=== PATIENT | male | born 1955 | race Caucasian/White ===

== ENCOUNTER → 2018-03-30 16:38 | Outpatient (CLI) | payer OTHER, SELFPAY ==
--- NOTE | 2018-03-30 16:42 | DI.RAD.S_ITS ---
PROCEDURE: XR CHEST 2V INDICATIONS: cough fever TECHNIQUE: 2 views of the chest were acquired. COMPARISON: [facility], , CHEST 1 VIEW, 10/28/2017, 12:40. [facility], , CHEST 2 VIEW, 02/28/2016, 12:42. FINDINGS: Surgical changes and devices: None. Lungs and pleura: No pleural effusions or pneumothorax. Lungs are clear. Mediastinum: Mediastinal contours are normal. Heart size is normal. Bones and chest wall: No suspicious bony abnormalities. Soft tissues appear unremarkable. IMPRESSION: No radiographic evidence of acute cardiopulmonary pathology. Dictated by: Jarred Martinez M.D. on 03/30/2018 at 17:01 Approved by: Jarred Martinez M.D. on 03/30/2018 at 17:05
== END ==
PROVIDERS: Family Provider Internal Medicine; PCP Internal Medicine; Visit Provider Physician Assistant
DX: R50.9 Fever, unspecified (principal); R05 Cough
CPT/HCPCS: 71046

== ENCOUNTER → 2018-10-24 09:05 | Outpatient (CLI) | payer OTHER, SELFPAY ==
--- NOTE | 2018-10-24 | DI.US.S_ITS ---
PROCEDURE: US CAROTID DOPPLER BI INDICATIONS: STENOSIS TECHNIQUE: Color and pulse Doppler interrogation was performed of both carotid systems, with image documentation and velocity measurements. COMPARISON: [facility], , CAROTID ARTERY DOPPLER BIL, 10/02/2016, 8:59. FINDINGS: Stenosis calculations are based on SRU (Society of Radiologists in Ultrasound) criteria. The flow velocities and the arterial waveforms are normal within both carotid arterial systems. Atherosclerotic plaque is seen on both sides. The estimated degree of internal carotid artery stenosis is less than 50%. Antegrade flow is confirmed within both vertebral arteries. IMPRESSION: No hemodynamically significant stenosis is seen. No significant change from the prior. Atherosclerotic plaque is noted bilaterally. Dictated by: Orlando Sprague M.D. on 10/24/2018 at 14:01 Approved by: Orlando Sprague M.D. on 10/24/2018 at 14:01
== END ==
PROVIDERS: PCP Internal Medicine; Visit Provider Internal Medicine
DX: I65.23 Occlusion and stenosis of bilateral carotid arteries (principal)
CPT/HCPCS: 93880

== ENCOUNTER → 2018-11-28 13:54 | Outpatient (CLI) | payer OTHER, SELFPAY ==
--- NOTE | 2018-11-28 | DI.CT.S_ITS ---
PROCEDURE: CT CHEST WO CON INDICATIONS: CHEST PAIN TECHNIQUE: Noncontrast 5 mm thick sections acquired from the pulmonary apices to the posterior costophrenic angles. 7 mm thick coronal and sagittal MIP reformats were then acquired. For radiation dose reduction, the following was used: automated exposure control, adjustment of mA and/or kV according to patient size. COMPARISON: [facility], , CT THORAX W/CONTRAST, 03/15/2006, 11:14. [facility], CR, CHEST 1 VIEW, 10/28/2017, 12:40. [facility], CR, XR CHEST 2V, 03/30/2018, 16:25. FINDINGS: Image quality: Excellent. Lungs and pleura: Left basilar atelectasis. No pleural effusions or pneumothorax. Central and peripheral airways are patent and normal in caliber. Mediastinum: Heart size is normal. No pericardial effusion. Mild coronary artery calcifications. No mediastinal adenopathy by size criteria. Thoracic aorta and central pulmonary arteries are normal in size. Esophagus is normal in caliber. No hiatal hernia. Bones and chest wall: No suspicious bony lesions. No vertebral body compression fractures. No axillary or supraclavicular adenopathy by size criteria. Thyroid gland is normal. Abdomen: There are calcific foci in the spleen, consistent with old granulomas. IMPRESSION: 1. Left basilar atelectasis. 2. Mild coronary artery calcifications consistent with atherosclerosis. 3. Remote granulomatous infection involving the spleen. Dictated by: Cyn Soto M.D. on 11/28/2018 at 14:37 Transcribed by: MELISSA on 11/28/2018 at 14:48 Approved by: Cyn Soto M.D. on 11/28/2018 at 20:50
== END ==
PROVIDERS: PCP Internal Medicine; Visit Provider Internal Medicine
DX: R07.9 Chest pain, unspecified (principal); J98.11 Atelectasis; I25.10 Atherosclerotic heart disease of native coronary artery without angina pectoris
CPT/HCPCS: 71250

== ENCOUNTER → 2019-04-15 10:50 | Outpatient (CLI) | payer OTHER, SELFPAY ==
[2019-04-15 17:06] LABS: Vitamin D 25 Hydroxy (D3) 26.1 ng/mL (30.0-100.0)
[2019-04-15 17:34] LABS: Alanine Aminotransferase 26 IU/L (21-72); Aspartate Aminotransferase 26 IU/L (17-59); Cholesterol 197 mg/dL (140-199); HDL Cholesterol 38 mg/dL (40-60)
[2019-04-15 17:42] LABS: Triglycerides 681 mg/dL (35-150)
== END ==
PROVIDERS: PCP Internal Medicine; Visit Provider Internal Medicine
DX: E78.5 Hyperlipidemia, unspecified (principal); E55.9 Vitamin D deficiency, unspecified
CPT/HCPCS: 36415; 80061; 82306; 84450; 84460

== ENCOUNTER → 2019-06-18 09:03 | Outpatient (CLI) | payer OTHER, SELFPAY ==
--- NOTE | 2019-06-18 09:04 | DIET.PN ---
Dietary Progress Note Assessment: starting radiation treatment in 30d on prostate, interested in getting healthy to support overall health HT: 5'10 WT: 200 Wt goal 180# BMI: 28.7 Wakes 6-9am coffee black, toast, 2 eggs or cereal (honey nut type), sometimes half a banana 11-1pm lunch: sandwich-turkey, cheese or burger/fish and chips-likes potatoes snacks a lot: crunchy salty like crackers and chips dinners: tortilla soup or burgers on grill Eats out a lot: rockfish, browns, filomena, candel[address] drive in, farmhouse breakfast evening: vodka cocktail and snacks relaxing watching tv goes to bed 10pm or sometimes later stress levels are pretty low but energy is also sort of low Not a fruit and veggie eater but does enjoy: grilled veggies-brussels sprouts and asparagus, will do a salad blueberries and bananas smoothies: frozen berries, banana, yogurt and milk PA: no intentional workout supps: Vit D in winter, Emergen-C occ. Labs: high triglycerides Nutrition Diagnosis: Nutrition related knowledge deficit r/t dietary pattern to support health aeb reliance on eating out, consumption of highly processed, low-fiber foods (crackers, chips, fries), consumption of inflammatory fats (fried foods, beef) and low consumption of F/V. Interventions: Discussed potential side effects of radiation. Educated on the role of healthy fats in pain control and inflammation. Educated on how increasing fiber can support weight loss and overall health. Discussed starting a PA plan, even as small as 10min walks post meals. Discussed strategies to increase F/V consumption throughout the day. Collaborated c pt to modify daily intake to include more anti-inflammatory fats, fiber, and F/V. Client Goals: Willprioritize a 10 minute walk after meals when eating out. Will increase fiber by choosing whole grain bread, chips etc Will add a scoop pro powder to smoothie Anti-inflammatory fats (nuts, seeds, vegetable based oils, avocado, coconut, fish-salmon, trout, sardines, tuna, etc) will outcompete the inflammatory fats (from animal foods like meat and dairy) to help with pain and systemic inflammation. Use olive oil, find a non-aerosol olive oil spray instead of MARA vegetable oil, find an avocado oil to use for cooking. Incorporate fruits and veggies into diet, aim for 7-10 servings per day. Monitoring/Evaluations: Pt comfortable with information and will call to schedule f/u if desired.
== END ==
PROVIDERS: PCP Internal Medicine; Visit Provider Internal Medicine
DX: E78.1 Pure hyperglyceridemia (principal)
CPT/HCPCS: 97802

== ENCOUNTER → 2019-07-09 07:56 | Outpatient (CLI) | payer OTHER, SELFPAY ==
--- NOTE | 2019-07-09 | DI.CT.S_ITS ---
PROCEDURE: CT ABDOMEN PELVIS W CON INDICATIONS: Prostate cancer TECHNIQUE: After the administration of oral and intravenous contrast, 5 mm thick sections acquired from the diaphragms to the symphysis. 5 mm thick coronal and sagittal reformats were performed. For radiation dose reduction, the following was used: automated exposure control, adjustment of mA and/or kV according to patient size. COMPARISON: [facility], CT, ABDOMEN/PELVIS WITH CONTRAST, 10/28/2017, 14:04. FINDINGS: Image quality: Excellent. ABDOMEN: Lung bases: Lung bases are clear. Heart size is normal. Solid organs: Liver is normal in size and enhancement. A well-defined lobulated hypodensity in the upper left hepatic lobe is stable. Gallbladder is normal. Biliary system is non-dilated. Pancreas enhances normally. Spleen i contains numerous punctate calcifications and occasional subcentimeter hypodensities too small to characterize. No adrenal nodules. Kidneys are normal in size and enhancement, without hydronephrosis. Peritoneum and bowel: The distal aspect of the transverse colon is in spasm. There are numerous diverticula throughout the distal descending and sigmoid colon. No inflammatory changes. At the rectosigmoid junction, there is a fixed short segment of asymmetric wall thickening and focal stenosis similar compared to the prior study. No adjacent inflammation or fluid. A normal appendix is present. Stomach, small bowel, and colon loops are otherwise normal in caliber and wall thickness. No free fluid or air. Nodes and vessels: No retroperitoneal or mesenteric adenopathy. Aorta and inferior vena cava are normal in caliber. Miscellaneous: No ventral hernias. PELVIS: Genitourinary: Bladder wall thickness is normal. The prostate gland is surgically absent. No suspicious pelvic masses or fluid collections. Miscellaneous: No inguinal hernias or adenopathy. Bones: No suspicious bony lesions. No vertebral body compression fractures. IMPRESSION: 1. At the rectosigmoid junction, there is a fixed short segment of stenosis and wall thickening. This may be related to postsurgical adhesive change, chronic fibrosis, however colonoscopy is recommended to exclude malignancy. 2. Post prostatectomy with interval resolution of prior pelvic inflammatory changes. 3. Descending and sigmoid diverticulosis. 4. No evidence of distant metastatic disease in the abdomen or pelvis. 5. Granulomatous changes of the spleen. Dictated by: Beckie Perry M.D. on 07/09/2019 at 12:58 Approved by: Beckie Perry M.D. on 07/09/2019 at 13:06
--- NOTE | 2019-07-09 | DI.NM.S_ITS ---
PROCEDURE: NM BONE SCAN WHOLE BODY RADIOPHARMACEUTICAL: 20.0 mCi Tc-99m MDP IV. INDICATIONS: Prostate cancer TECHNIQUE: Delayed whole-body scintigrams were obtained approximately 3-4 hours after intravenous injection of radiotracer. Anterior and posterior views were acquired from vertex to feet. . COMPARISON: None. FINDINGS: There is mild periarticular uptake about the knees which is likely degenerative. No suspicious tracer activity seen. Physiologic tracer activity present in the kidneys and bladder. IMPRESSION: No suspicious tracer activity. Dictated by: Alex Kearns M.D. on 07/09/2019 at 13:00 Approved by: Alex Kearns M.D. on 07/09/2019 at 13:06
[2019-07-09 08:29] LABS: BUN Creatinine Ratio 14.5 (6-22); Blood Urea Nitrogen 16 mg/dL (9-20); Estimated Glomerular Filt Rate > 60.0 mL/min (>60)
== END ==
PROVIDERS: PCP Internal Medicine; Visit Provider Radiology Radiation Oncology
DX: C61 Malignant neoplasm of prostate (principal)
CPT/HCPCS: 36415; 74177; 78306; 82565; 84520; A9503; Q9967

== ENCOUNTER → 2019-12-19 10:21 | Outpatient (CLI) | payer OTHER, SELFPAY ==
[2019-12-19 12:27] LABS: Hematocrit 39.8 % (41-53); Hemoglobin 13.8 g/dL (13.5-17.5); Mean Corpuscular HGB Conc 34.7 % (30-36); Mean Corpuscular Hemoglobin 35.8 PG (26-34); Mean Corpuscular Volume 103.3 fL (80-100); Platelet Count 110 X10^3/uL (150-400); Red Blood Cell Count 3.85 X10^6/uL (4.5-5.9); Red Cell Distribution Width 13.3 % (11.6-14.8)
[2019-12-19 12:57] LABS: Neutrophils Absolute Manual 2600 /uL (3000-5900); RBC Morphology Normal Morphology; Total Cells Counted 100
[2019-12-19 13:30] LABS: Alanine Aminotransferase 30 IU/L (<50); Albumin 4.4 g/dL (3.5-5.0); Albumin Globulin Ratio 1.4 (1.0-2.8); Alkaline Phosphatase 81 U/L (38-126); Aspartate Aminotransferase 33 IU/L (17-59); Bilirubin Total 1.6 mg/dL (0.2-1.3); Blood Urea Nitrogen 23 mg/dL (9-20); Calcium 9.9 mg/dL (8.4-10.2); Carbon Dioxide 25 mmol/L (22-32); Chloride 103 mmol/L (98-107); Cholesterol 213 mg/dL (140-199); Estimated Glomerular Filt Rate > 60.0 mL/min (>60); Globulin 3.1 g/dL (1.7-4.1); Glucose 101 mg/dL (80-110); HDL Cholesterol 51 mg/dL (40-60); HEMOLYSIS < 15 (0-50); Potassium 4.3 mmol/L (3.4-5.1); Sodium 139 mmol/L (137-145); Total Protein 7.5 g/dL (6.3-8.2); Triglycerides 487 mg/dL (35-150)
== END ==
PROVIDERS: PCP Student in an Organized Health Care Education/Training Program; Visit Provider Student in an Organized Health Care Education/Training Program
DX: E78.1 Pure hyperglyceridemia (principal); D70.9 Neutropenia, unspecified; E55.9 Vitamin D deficiency, unspecified; Z79.899 Other long term (current) drug therapy; Z90.79 Acquired absence of other genital organ(s); Z92.3 Personal history of irradiation
CPT/HCPCS: 36415; 80053; 80061; 82306; 85025

== ENCOUNTER → 2019-12-22 12:43 | Outpatient (CLI) | payer OTHER, SELFPAY ==
[2019-12-22 13:11] LABS: Bacteria Urine None Seen
[2019-12-22 13:44] LABS: Appearance Urine UA CLEAR; Bilirubin Urine UA NEGATIVE (NEGATIVE); Color Urine UA YELLOW; Glucose Urine UA NEGATIVE (Negative); Ketones Urine UA NEGATIVE (NEGATIVE); Leukocyte Esterase Urine UA NEGATIVE (NEGATIVE); Nitrite Urine UA NEGATIVE (Negative); Occult Blood Urine UA 1+ (Negative); Protein Urine UA 1+ (Negative); Specific Gravity Urine UA 1.025 (1.000-1.035); Urobilinogen Urine UA 0.2 E.U./dL (0.2); pH Urine UA 5.5 (4.5-8.0)
[2019-12-22 14:07] LABS: RBC Urine 1-5/HPF (0-5/HPF); WBC Urine 0-1/HPF (0-5/HPF)
[2019-12-22 14:08] LABS: Culture Indicated Urine Cult Not Indicated; Squamous Epithelial Cell Urine 0-1 /HPF (0-5/HPF)
== END ==
PROVIDERS: PCP Student in an Organized Health Care Education/Training Program; Referring Provider Radiology Radiation Oncology; Visit Provider Radiology Radiation Oncology
DX: R30.0 Dysuria (principal)
CPT/HCPCS: 81001

== ENCOUNTER → 2020-03-26 11:35 | Outpatient (CLI) | payer OTHER, SELFPAY ==
[2020-03-26 13:52] LABS: Prostate Specific Antigen < 0.064 ng/mL (0.10-4.00)
== END ==
PROVIDERS: PCP Student in an Organized Health Care Education/Training Program; Referring Provider Radiology Radiation Oncology; Visit Provider Radiology Radiation Oncology
DX: C61 Malignant neoplasm of prostate (principal)
CPT/HCPCS: 36415; 84153

== ENCOUNTER → 2020-09-01 09:42 | Outpatient (CLI) | payer OTHER, SELFPAY ==
--- NOTE | 2020-09-01 09:45 | DI.RAD.S_ITS ---
PROCEDURE: XR KNEE LT 3V INDICATIONS: Left knee pain TECHNIQUE: 3 views of the knee were acquired. COMPARISON: None. FINDINGS: Bones: No acute fractures or dislocations. Mild tricompartmental degenerative changes of the left knee. No suspicious bony lesions. Soft tissues: No joint effusion. No suspicious soft tissue calcifications. IMPRESSION: Left knee without acute osseous abnormalities. Mild tricompartmental osteoarthritic changes of the left knee. Dictated by: Imtiaz Cueto M.D. on 09/01/2020 at 14:19 Approved by: Imtiaz Cueto M.D. on 09/01/2020 at 14:20
--- NOTE | 2020-09-01 09:45 | DI.RAD.S_ITS ---
PROCEDURE: XR HIP W PEL IF DONE LT 2V INDICATIONS: Left hip pain TECHNIQUE: AP pelvis with lateral view(s) of the left a hip(s). COMPARISON: None. FINDINGS: Bones: No fractures or dislocations. Pelvic ring appears intact. No suspicious bony lesions. Mild degenerative changes of the bilateral femoroacetabular joints. Soft tissues: The visualized bowel gas pattern is normal. No suspicious soft tissue calcifications. IMPRESSION: Mild degenerative changes of the bilateral femoroacetabular joints. Left hip without acute radiographic abnormalities. Dictated by: Imtiaz Cueto M.D. on 09/01/2020 at 14:16 Approved by: Imtiaz Cueto M.D. on 09/01/2020 at 14:19
[2020-09-01 11:49] LABS: Alanine Aminotransferase 22 IU/L (<50); Albumin 4.2 g/dL (3.5-5.0); Albumin Globulin Ratio 1.4 (1.0-2.8); Alkaline Phosphatase 91 U/L (38-126); Aspartate Aminotransferase 26 IU/L (17-59); BUN Creatinine Ratio 16.3 (6-22); Bilirubin Direct 0.2 mg/dL (0.0-0.4); Bilirubin Total 1.1 mg/dL (0.2-1.3); Blood Urea Nitrogen 16 mg/dL (9-20); Calcium 9.3 mg/dL (8.4-10.2); Carbon Dioxide 28 mmol/L (22-32); Chloride 104 mmol/L (98-107); Cholesterol 181 mg/dL (140-199); Estimated Glomerular Filt Rate > 60.0 mL/min (>60); Glucose 105 mg/dL (80-110); HDL Cholesterol 54 mg/dL (40-60); HEMOLYSIS < 15 (0-50); Potassium 4.5 mmol/L (3.4-5.1); Sodium 139 mmol/L (137-145); Total Protein 7.2 g/dL (6.3-8.2); Triglycerides 442 mg/dL (35-150)
[2020-09-01 11:53] LABS: Vitamin D 25 Hydroxy (D3) 41.2 ng/mL (30.0-100.0)
[2020-09-01 12:36] LABS: Prostate Specific Antigen < 0.064 ng/mL (0.10-4.00)
== END ==
PROVIDERS: PCP Student in an Organized Health Care Education/Training Program; Referring Provider Student in an Organized Health Care Education/Training Program; Visit Provider Student in an Organized Health Care Education/Training Program
DX: M25.552 Pain in left hip (principal); M25.562 Pain in left knee; E78.1 Pure hyperglyceridemia; R17 Unspecified jaundice; E55.9 Vitamin D deficiency, unspecified; Z90.79 Acquired absence of other genital organ(s)
CPT/HCPCS: 36415; 73502; 73562; 80053; 80061; 82248; 82306; 84153

== ENCOUNTER → 2020-12-14 12:40 | Outpatient (CLI) | payer MEDICARE, SELFPAY ==
[2020-12-14] MEDS: COVID-19 VACC #1, MRNA(MOD) 100 MCG/0.5 ML VIAL IM (12:46)
== END ==
PROVIDERS: PCP Student in an Organized Health Care Education/Training Program; Visit Provider Internal Medicine
DX: Z23 Encounter for immunization (principal)
CPT/HCPCS: 0011A; 91301

== ENCOUNTER → 2021-01-11 12:47 | Outpatient (CLI) | payer MEDICARE, SELFPAY ==
[2021-01-11] MEDS: COVID-19 VACC #2, MRNA(MOD) 100 MCG/0.5 ML VIAL IM (12:59)
== END ==
PROVIDERS: PCP Student in an Organized Health Care Education/Training Program; Visit Provider Internal Medicine
DX: Z23 Encounter for immunization (principal)
CPT/HCPCS: 0012A; 91301

== ENCOUNTER → 2021-04-05 12:35 | Outpatient (CLI) | payer OTHER, SELFPAY ==
[2021-04-05 16:15] LABS: Prostate Specific Antigen < 0.064 ng/mL (0.10-4.00)
== END ==
PROVIDERS: PCP Student in an Organized Health Care Education/Training Program; Referring Provider Radiology Radiation Oncology; Visit Provider Radiology Radiation Oncology
DX: C61 Malignant neoplasm of prostate (principal)
CPT/HCPCS: 36415; 84153

== ENCOUNTER → 2021-07-04 11:13 | Outpatient (CLI) | payer OTHER, SELFPAY ==
[2021-07-04 13:45] LABS: COVID19 -Nasal RAPID Negative (Negative)
== END ==
PROVIDERS: PCP Student in an Organized Health Care Education/Training Program; Visit Provider Physician Assistant
DX: R52 Pain, unspecified (principal); Z20.822 Contact with and (suspected) exposure to COVID-19
CPT/HCPCS: 87635

== ENCOUNTER → 2021-08-08 10:27 | Outpatient (CLI) | payer OTHER, SELFPAY ==
--- NOTE | 2021-08-08 10:29 | DI.CT.S_ITS ---
PROCEDURE: CT ABDOMEN PELVIS WO CON INDICATIONS: Lower abdominal pain; h/o divertic TECHNIQUE: Axial sections were acquired from the lung bases to the pubic symphysis. Coronal and sagittal reformats were performed. For radiation dose reduction, the following was used: automated exposure control, adjustment of mA and/or kV according to patient size. COMPARISON: [facility], CT, CT ABDOMEN PELVIS W CON, 07/09/2019, 9:26. FINDINGS: Image quality: Excellent. Lung bases: Lung bases are clear. Small hiatal hernia. Heart: Normal size. There is coronary artery calcification. URINARY: Right Kidney: No stones or hydronephrosis. Mild perinephric stranding. Right Ureter: No hydroureter. Left Kidney: There is a 2 mm nonobstructive stone. No hydronephrosis. Mild perinephric stranding. Left Ureter: No hydroureter. Bladder: Bladder is contracted. No bladder stones. ABDOMEN: Liver: Liver is normal in size. Mild hepatic steatosis. There is a 1.8 cm low-density nodule in segment 4, most likely a cyst. Gallbladder: Unremarkable. Biliary ducts: Unremarkable. Pancreas: Unremarkable. Spleen: Normal in size. Calcified nodules in spleen are compatible with old granulomas. Adrenal Glands: Unremarkable. Stomach and Bowel: Stomach, small bowel loops, and colon are normal in caliber. There are numerous colonic diverticula, most numerous in sigmoid colon. There is focal thickening and nichole-colonic inflammatory stranding in the proximal sigmoid colon consistent with diverticulitis. Peritoneum: No abnormal intraperitoneal fluid. No free air. Ventral Wall: There is a tiny fat containing umbilical hernia. Abdominal Nodes: No enlarged retroperitoneal or mesenteric lymph nodes. Mild mesenteric stranding and small mesenteric lymph nodes are noted, nonspecific. Vessels: Aorta and inferior vena cava are normal in size. PELVIS: Pelvic Organs: Prostate is absent. Pelvic Nodes: Unremarkable. Miscellaneous: Small fat containing inguinal hernias are seen. Bones: Unremarkable. IMPRESSION: 1. Acute diverticulitis of the sigmoid colon. No findings to suggest diverticular perforation. No abscess. 2. A 2 mm nonobstructive left renal calculus. 3. Remote granulomatous disease involving the spleen. Dictated by: Cyn Soto M.D. on 08/08/2021 at 10:46 Approved by: Cyn Soto M.D. on 08/08/2021 at 10:58
== END ==
PROVIDERS: PCP Student in an Organized Health Care Education/Training Program; Referring Provider Student in an Organized Health Care Education/Training Program; Visit Provider Student in an Organized Health Care Education/Training Program
DX: R10.30 Lower abdominal pain, unspecified (principal); K57.32 Diverticulitis of large intestine without perforation or abscess without bleeding; N20.0 Calculus of kidney; D71 Functional disorders of polymorphonuclear neutrophils
CPT/HCPCS: 74176

== ENCOUNTER → 2022-01-13 09:14 | Outpatient (CLI) | payer OTHER, SELFPAY ==
[2022-01-13 11:29] LABS: COVID19 -Nasal RAPID Negative (Negative)
== END ==
PROVIDERS: PCP Student in an Organized Health Care Education/Training Program; Visit Provider Family Medicine Sleep Medicine
DX: Z20.822 Contact with and (suspected) exposure to COVID-19 (principal)
CPT/HCPCS: 87635; C9803

== ENCOUNTER → 2022-01-16 07:56 | Outpatient (CLI) | payer OTHER, SELFPAY ==
--- NOTE | 2022-01-16 09:11 | PM.TREADMILL ---
Cardiac Stress Test Report Referral & Results Date Patient Seen: 01/16/22 Time Patient Seen: 09:00 Requesting provider: Yaw Rodríguez Indication: Dyspnea on exertion Rest ECG: Normal sinus rhythm Procedure Note: Today following both written and verbal informed consent, the patient was exercised according to a standard Jimmy protocol. The patient exercised for a total of 6 minute 16 seconds achieving a maximum heart rate of 145. Patient's maximum systolic blood pressure was 270. This was an estimated 7.0 METs. Hypertensive response to exercise. Presenting symptoms of shortness of breath/fatigue evident at peak exercise. No other signs or symptoms of angina. No ST changes or rhythm changes. FA I +10% on active scale. Impression: Low probability for ischemia. Will order follow-up echocardiogram. Counseled the patient to avoid strenuous exercise until workup is complete. Please note: Actual ECG tracings can be found in the PACS system.
== END ==
PROVIDERS: PCP Student in an Organized Health Care Education/Training Program; Referring Provider Student in an Organized Health Care Education/Training Program; Visit Provider Student in an Organized Health Care Education/Training Program
DX: I20.8 Other forms of angina pectoris (principal); R06.00 Dyspnea, unspecified
CPT/HCPCS: 93016; 93017; 93018

== ENCOUNTER → 2022-02-27 07:50 | Outpatient (CLI) | payer OTHER, SELFPAY ==
--- NOTE | 2022-02-27 07:52 | DI.ECHO.S_ITS ---
[facility]---------+ [facility] +---------+ : : [address] : : : : [id number] : : : : Phone: [phone]+ Echocardiogram Report + + :Name: NUPUR FUENTES Study Date: 02/27/2022 Height: 70 in : :[facility] ReadingLocation: Weight: 200 lb : : Gender: Male BSA: 2.1 m2 : :: 1955 Age: 66 yrs BP: 160/98 mmHg: :Reason For Study: ABNROMAL EXERCISE STRESS TEST : :Ordering Physician: MARCY, : :STEFANY Performed By: Ling Isaac : :Referring: STEFANY VIDAL : + + Interpretation Summary The left ventricle is normal in size. The ejection fraction is estimated to be 50-55%. No significant diastolic dysfunction. The right ventricle is normal in size and function. Mild MR, mild AR, mild TR and mild WI. The aortic root is mildly dilated. The ascending aorta is mildly enlarged. The IVC is of normal diameter and collapses greater than 50% with a sniff. This suggests a low right atrial pressure of 3 mm Hg. Mild atherosclerotic plaque(s) in the aortic arch. Procedure: A two-dimensional transthoracic echocardiogram with color flow and Doppler was performed. The study quality was technically adequate. There is no prior echocardiogram noted for this patient. The patient was in sinus rhythm with heart rates between 66-81 bpm during the exam. Left Ventricle: The left ventricle is normal in size. There is mild concentric left ventricular hypertrophy. Proximal septal thickening is noted. There is no echo evidence for significant left ventricular outflow tract obstruction. A false chord is noted (normal variant). Trabeculae near apex are visualized. No thrombus is observed. The ejection fraction is estimated to be 50-55%. There are no focal wall motion abnormalities. No significant diastolic dysfunction. Right Ventricle: The right ventricle is normal in size and function. Atria: The left atrial size is normal. Right atrial size is normal. There is no Doppler evidence for an interatrial shunt. Mitral Valve: The mitral valve leaflets appear mildly thickened, but open well. There is mild mitral annular calcification. There is mild mitral regurgitation. Aortic Valve: The aortic valve is trileaflet. The aortic valve opens well. There is no aortic valve stenosis. There is mild aortic regurgitation. Tricuspid Valve: The tricuspid valve is normal in structure and function. There is mild tricuspid regurgitation. Pulmonary artery pressures cannot be estimated because of the lack of a measurable TR jet velocity. Pulmonic Valve: The pulmonic valve leaflets are thin and pliable; valve motion is normal. There is mild pulmonic regurgitation. Great Vessels: The aortic root is mildly dilated. The ascending aorta is mildly enlarged. Mild atherosclerotic plaque(s) in the aortic arch. The IVC is of normal diameter and collapses greater than 50% with a sniff. This suggests a low right atrial pressure of 3 mm Hg. Pericardium/ Pleura There is no pericardial effusion. There is no pleural effusion. MMode/2D Measurements & Calculations LVIDd: 4.4 cm LVOT diam: 2.2 cm LVIDs: 3.2 cm Ao root diam: 4.5 cm FS: 26.2 % asc Aorta Diam: 4.1 cm IVSd: 1.4 cm Ao Arch Diam (Prox Trans): 3.2 cm LVPWd: 1.1 cm LV raines. diameter/BSA (cm/m^2): 2.1 LV sys. diameter/BSA (cm/m^2): 1.5 LA A2 area: 19.2 cm2 RA long axis: 4.3 cm LA A4 area: 13.1 cm2 RA area: 13.2 cm2 LA length (vol): 4.3 cm RA vol: 34.5 ml LA vol: 49.5 ml RA : 16.5 ml/m2 LA vol index: 23.7 ml/m2 IVC diam: 1.5 cm RVD1 (basal): 2.8 cm TAPSE: 1.8 cm Doppler Measurements & Calculations Ao V2 max: 115.3 cm/sec LVOT Max Zen: 83.0 cm/sec Ao V2 mean: 77.1 cm/sec LV V1 max P.8 mmHg Ao max P.3 mmHg LV V1 VTI: 17.7 cm Ao mean P.8 mmHg GISELA(I,D): 3.2 cm2 Ao V2 VTI: 21.1 cm GISELA(V,D): 2.8 cm2 sev ratio: 0.84 GISELA indexed to BSA (cm^2/m^2): 1.6 MV E max zen: 63.4 cm/sec PA V2 max: 87.2 cm/sec MV A max zen: 54.0 cm/sec PA V2 mean: 58.0 cm/sec MV E/A: 1.2 PA mean P.5 mmHg Med Peak E' Zen: 6.4 cm/sec E/E' med: 10.0 Lat Peak E' Zen: 6.6 cm/sec E/E' lat: 9.6 E/e' average: 9.8 MV dec time: 0.22 sec SV([facility]): 68.4 ml Reading Physician:01:00 PM
== END ==
PROVIDERS: PCP Student in an Organized Health Care Education/Training Program; Referring Provider Student in an Organized Health Care Education/Training Program; Visit Provider Student in an Organized Health Care Education/Training Program
DX: I08.3 Combined rheumatic disorders of mitral, aortic and tricuspid valves (principal); I77.810 Thoracic aortic ectasia; I70.0 Atherosclerosis of aorta; R06.00 Dyspnea, unspecified; R94.39 Abnormal result of other cardiovascular function study; I10 Essential (primary) hypertension; Z79.899 Other long term (current) drug therapy
CPT/HCPCS: 36415; 80048; 93306

== ENCOUNTER → 2022-02-27 08:55 | Outpatient (CLI) | payer OTHER, SELFPAY ==
[2022-02-27 11:25] LABS: BUN Creatinine Ratio 16.5 (6-22); Blood Urea Nitrogen 16 mg/dL (9-20); Calcium 8.9 mg/dL (8.4-10.2); Carbon Dioxide 26 mmol/L (22-32); Chloride 105 mmol/L (98-107); Estimated Glomerular Filt Rate > 60.0 mL/min (>60); Glucose 97 mg/dL (80-110); HEMOLYSIS 16 (0-50); Sodium 139 mmol/L (137-145)
== END ==
PROVIDERS: PCP Student in an Organized Health Care Education/Training Program; Referring Provider Student in an Organized Health Care Education/Training Program; Visit Provider Student in an Organized Health Care Education/Training Program
DX: Z79.899 Other long term (current) drug therapy (principal)
CPT/HCPCS: 36415; 80048

== ENCOUNTER → 2022-04-04 09:15 | Outpatient (CLI) | payer OTHER, SELFPAY ==
[2022-04-04 12:04] LABS: Prostate Specific Antigen < 0.064 ng/mL (0.10-4.00)
== END ==
PROVIDERS: PCP Student in an Organized Health Care Education/Training Program; Referring Provider Radiology Radiation Oncology; Visit Provider Radiology Radiation Oncology
DX: C61 Malignant neoplasm of prostate (principal)
CPT/HCPCS: 36415; 84153

== ENCOUNTER → 2022-05-16 13:32 | Outpatient (CLI) | payer OTHER, SELFPAY ==
--- NOTE | 2022-05-16 13:35 | DI.CT.S_ITS ---
PROCEDURE: CT ABDOMEN PELVIS WO/W CON INDICATIONS: Gross hematuria TECHNIQUE: After the administration of oral contrast, 5 mm thick sections acquired from the diaphragms to the iliac crests. After the administration of intravenous contrast, 5 mm thick sections acquired from the diaphragms to the symphysis. 5 mm thick coronal and sagittal reformats were acquired. For radiation dose reduction, the following was used: automated exposure control, adjustment of mA and/or kV according to patient size. COMPARISON: CT, CT ABDOMEN PELVIS W CON, 07/09/2019, 9:26. [facility], CT, CT ABDOMEN PELVIS WO CON, 08/08/2021, 10:35. FINDINGS: Image quality: Excellent. ABDOMEN: Lung bases: Lung bases are clear. Heart size is normal. Moderate coronary artery calcification. Small hiatal hernia. Kidneys, ureters and urinary bladder: Both kidneys are normal in size. No hydronephrosis or nephrolithiasis. No ureteral stones. Ureters are normal in caliber and demonstrate expected course. Bladder is not fully distended. No bladder stones. Mild bladder wall thickening may be present but bladder is not fully distended. Solid organs: There is a 1.7 cm diameter low-density nodule in segment 4 of liver, most likely a cyst. Liver is normal in size and enhancement. Gallbladder is normal. Biliary system is non-dilated. Pancreas enhances normally. Spleen is normal in size. There are multiple calcified granulomas in spleen. No adrenal nodules. Bowel and peritoneum: Stomach, small and large bowel loops are normal in caliber. Colonic diverticulosis. Mild thickening of sigmoid colon with subtle stranding consistent with mild diverticulitis. No free fluid or air. Nodes and vessels: No retroperitoneal or mesenteric adenopathy by size criteria. Aorta and inferior vena are normal in caliber. Miscellaneous: No ventral hernias. PELVIS: Genitourinary: Prostate is not visualized. Seminal vesicles are normal. Miscellaneous: No inguinal hernias or adenopathy. Bones: No suspicious bony lesions. No vertebral body compression fractures. IMPRESSION: 1. No urinary stones or hydronephrosis. 2. Bladder wall may be mildly thickened but bladder is not fully distended. 3. Diverticulosis. There is mild sigmoid colon thickening and pericolonic stranding suggesting mild diverticulitis. 4. Remote granulomatous disease of spleen. 5. A 1.7 cm low-density nodule in segment 4 of liver, most likely a cyst. Dictated by: Cyn Soto M.D. on 05/16/2022 at 15:32 Approved by: Cyn Soto M.D. on 05/16/2022 at 16:33
== END ==
PROVIDERS: PCP Student in an Organized Health Care Education/Training Program; Referring Provider Physician Assistant Medical; Visit Provider Physician Assistant Medical
DX: R31.0 Gross hematuria (principal); K57.90 Diverticulosis of intestine, part unspecified, without perforation or abscess without bleeding; K76.9 Liver disease, unspecified; K44.9 Diaphragmatic hernia without obstruction or gangrene; I25.10 Atherosclerotic heart disease of native coronary artery without angina pectoris
CPT/HCPCS: 74178

== ENCOUNTER → 2022-07-12 16:33 | Outpatient (CLI) | payer OTHER, SELFPAY ==
--- NOTE | 2022-07-12 16:35 | DI.RAD.S_ITS ---
PROCEDURE: XR HAND LT MIN 3V INDICATIONS: Traumatic injury to left thumb TECHNIQUE: 3 views of the hand(s) acquired. COMPARISON: None. FINDINGS: Bones: No fractures or dislocations. Carpal bones are normally aligned. No suspicious bony lesions. Soft tissues: No suspicious soft tissue calcifications. IMPRESSION: No fracture or dislocation. Dictated by: Bhavesh Muhammad M.D. on 07/12/2022 at 21:30 Approved by: Bhavesh Muhammad M.D. on 07/12/2022 at 21:30
== END ==
PROVIDERS: PCP Student in an Organized Health Care Education/Training Program; Referring Provider Student in an Organized Health Care Education/Training Program; Visit Provider Student in an Organized Health Care Education/Training Program
DX: S69.92XA Unspecified injury of left wrist, hand and finger(s), initial encounter (principal); X58.XXXA Exposure to other specified factors, initial encounter
CPT/HCPCS: 73130

== ENCOUNTER → 2022-09-27 12:02 | Outpatient (CLI) | payer OTHER, SELFPAY ==
[2022-09-27 15:08] LABS: Prostate Specific Antigen < 0.064 ng/mL (0.10-4.00)
== END ==
PROVIDERS: PCP Student in an Organized Health Care Education/Training Program; Referring Provider Radiology Radiation Oncology; Visit Provider Radiology Radiation Oncology
DX: C61 Malignant neoplasm of prostate (principal)
CPT/HCPCS: 36415; 84153

== ENCOUNTER → 2022-12-12 11:51 | Outpatient (CLI) | payer OTHER, SELFPAY ==
[2022-12-12 12:30] LABS: Appearance Urine UA CLEAR; Bilirubin Urine UA NEGATIVE (NEGATIVE); Color Urine UA YELLOW; Glucose Urine UA NEGATIVE (Negative); Ketones Urine UA TRACE (NEGATIVE); Leukocyte Esterase Urine UA NEGATIVE (NEGATIVE); Nitrite Urine UA NEGATIVE (Negative); Occult Blood Urine UA TRACE-INTACT (Negative); Protein Urine UA NEGATIVE (Negative); Specific Gravity Urine UA 1.025 (1.000-1.035); Urobilinogen Urine UA 0.2 E.U./dL (0.2); pH Urine UA 5.5 (4.5-8.0)
[2022-12-12 12:41] LABS: RBC Urine 0-1/HPF (0-5/HPF); Squamous Epithelial Cell Urine 1-5 /HPF (0-5/HPF); WBC Urine 1-5/HPF (0-5/HPF)
[2022-12-12 12:42] LABS: Amorphous Sediment Urine 1+; Bacteria Urine None Seen; Culture Indicated Urine Cult Not Indicated; Mucus Urine 3+ (Negative)
== END ==
PROVIDERS: PCP Student in an Organized Health Care Education/Training Program; Referring Provider Student in an Organized Health Care Education/Training Program; Visit Provider Student in an Organized Health Care Education/Training Program
DX: R31.9 Hematuria, unspecified (principal)
CPT/HCPCS: 81001

== ENCOUNTER → 2022-12-18 10:38 | Outpatient (CLI) | payer OTHER, SELFPAY ==
--- NOTE | 2022-12-18 10:40 | DI.CT.S_ITS ---
PROCEDURE: CT ABDOMEN PELVIS W CON INDICATIONS: LLQ abdominal pain TECHNIQUE: After the administration of oral and IV contrast, axial sections were acquired from the lung bases to the pubic symphysis. Coronal and sagittal reformats were performed. For radiation dose reduction, the following was used: automated exposure control, adjustment of mA and/or kV according to patient size. COMPARISON: [facility], CT, CT ABDOMEN PELVIS WO/W CON, 05/16/2022, 13:37. CT, CT ABDOMEN PELVIS WO CON, 08/08/2021, 10:35. [facility], CT, CT ABDOMEN PELVIS W CON, 07/09/2019, 9:26. FINDINGS: Image quality: Excellent. Lung bases: Unremarkable. Heart: No significant findings. ABDOMEN: Liver: Normal size. Moderate hepatic steatosis. There is a 1.6 cm cyst in the left hepatic lobe. Gallbladder: Unremarkable. Biliary ducts: Unremarkable. Pancreas: Unremarkable. Spleen: Normal size. There are calcified granulomas. Adrenal Glands: Unremarkable. Kidneys and Ureters: Unremarkable. Stomach and Bowel: Stomach, small bowel loops, and colon are normal in caliber. Appendix appears normal. There are numerous colonic diverticula in sigmoid colon. [id number] diffuse thickening of sigmoid colon and rectum, consistent with mild chronic diverticulitis. Peritoneum: No abnormal intraperitoneal fluid. No free air. Ventral Wall: There is a small fat containing umbilical hernia. Abdominal Nodes: No retroperitoneal or mesenteric adenopathy by size criteria. Vessels: Aorta and inferior vena cava are normal in size. PELVIS: Pelvic Organs: Unremarkable. Bladder: Bladder is contracted. Pelvic Nodes: No enlarged lymph nodes. Miscellaneous: Small fat containing inguinal hernias are seen. Bones: Unremarkable. IMPRESSION: 1. Sigmoid diverticulosis. There is diffuse thickening of sigmoid colon suggesting chronic diverticulitis. A differential diagnosis is colitis. 2. Remote granulomatous infection of spleen. 3. Hepatic steatosis. There is a 1.6 cm hypodensity in the left hepatic lobe, most likely a cyst. Dictated by: Cyn Soto M.D. on 12/18/2022 at 13:48 Approved by: Cyn Soto M.D. on 12/19/2022 at 8:29
[2022-12-18 11:20] LABS: BUN Creatinine Ratio 17.2 (6-22); Blood Urea Nitrogen 17 mg/dL (9-20); Estimated Glomerular Filt Rate > 60 mL/min (>60)
== END ==
PROVIDERS: PCP Student in an Organized Health Care Education/Training Program; Referring Provider Student in an Organized Health Care Education/Training Program; Visit Provider Student in an Organized Health Care Education/Training Program
DX: R10.32 Left lower quadrant pain (principal); K76.89 Other specified diseases of liver; K57.30 Diverticulosis of large intestine without perforation or abscess without bleeding; K76.0 Fatty (change of) liver, not elsewhere classified; D73.89 Other diseases of spleen
CPT/HCPCS: 36415; 74177; 82565; 84520; Q9967

== ENCOUNTER → 2023-03-19 10:10 | Outpatient (CLI) | payer OTHER, SELFPAY ==
[2023-03-20 15:40] LABS: Prostate Specific Antigen 0.109 ng/mL (0.10-4.00)
== END ==
PROVIDERS: PCP Student in an Organized Health Care Education/Training Program; Referring Provider Radiology Radiation Oncology; Visit Provider Radiology Radiation Oncology
DX: C61 Malignant neoplasm of prostate (principal)
CPT/HCPCS: 36415; 84153

== ENCOUNTER → 2023-05-15 09:15 | Outpatient (CLI) | payer OTHER, SELFPAY ==
--- NOTE | 2023-05-15 09:21 | DI.RAD.S_ITS ---
PROCEDURE: XR CERVICAL SPINE 2V OR 3V INDICATIONS: h/o fusion, neck pain recurring, dexterity problem TECHNIQUE: 3 view(s) of the cervical spine were acquired. COMPARISON: None. FINDINGS: Bones: Prior C4-C5 ACDF. Orthopedic hardware is intact. Orthopedic hardware is in expected position. No fractures or dislocations to the T1 level. The lateral masses of C1 appear intact on the odontoid view. No suspicious bony lesions. Moderate C6-C7 and C7-T1 degenerative disc disease. Mild C3-C4 and C5-C6 degenerative disc disease. Mild facet hypertrophy throughout the cervical spine. Soft tissues: No prevertebral soft tissue swelling. IMPRESSION: 1. Multilevel degenerative disc disease. 2. Multilevel facet arthropathy. 3. No fracture. No acute osseous lesion. If symptoms and/or clinical suspicion for pathology persists, evaluation with MRI should be considered for further assessment. 4. C4-C5 ACDF. Dictated by: Alyson Gamez MD, PhD on 05/15/2023 at 13:33 Approved by: Alyson Gamez MD, PhD on 05/15/2023 at 13:35
== END ==
PROVIDERS: PCP Pediatrics; Referring Provider Pediatrics; Visit Provider Pediatrics
DX: M50.11 Cervical disc disorder with radiculopathy, high cervical region (principal); M47.22 Other spondylosis with radiculopathy, cervical region; Z98.1 Arthrodesis status
CPT/HCPCS: 72040

== ENCOUNTER → 2023-05-19 15:17 | Outpatient (CLI) | payer OTHER, SELFPAY ==
--- NOTE | 2023-05-19 15:35 | DI.MRI.S_ITS ---
PROCEDURE: MR CERVICAL SPINE WO CON INDICATIONS: neck pain with radiculopathy/cervical disease TECHNIQUE: Noncontrast sagittal T1 spin echo and T2 fast spin echo, sagittal STIR, foraminal oblique sagittal T2 fast spin echo, and axial gradient echo or T2 fast spin echo through the cervical spine. COMPARISON: [facility], MR, CERVICAL SPINE W/O CONTRAST, 07/27/2011, 18:58. [facility], CR, XR CERVICAL SPINE 2V OR 3V, 05/15/2023, 9:22. FINDINGS: Image quality: Excellent. Alignment and Curvature: There is loss of normal cervical lordosis. 2 mm of anterolisthesis of C2 on C3. Bone Marrow: Marrow demonstrates normal overall signal. Anterior fusion hardware at C4-C5. Mild reactive signal throughout the endplates of the cervical and upper thoracic spine. Spinal Cord: Visualized spinal cord has normal size and signal. No cerebellar tonsillar herniation. Paraspinous Soft Tissues: No paravertebral masses. Prevertebral soft tissues are normal in thickness. C2-C3: Moderate disc desiccation. Mild facet and uncovertebral hypertrophy bilaterally. No significant canal stenosis. No right foraminal stenosis. Moderate to severe left foraminal stenosis. Left C3 nerve root compression, new since the prior examination. C3-C4: Mild disc desiccation and diffuse disc bulge. Moderate facet and uncovertebral hypertrophy bilaterally. Increased, moderate canal stenosis. Increased, moderate right and moderate to severe left foraminal stenosis with left C4 nerve root compression, new since the prior examination. C4-C5: Anterior fusion hardware. Mild facet and uncovertebral hypertrophy bilaterally. No significant canal stenosis. Moderate bilateral foraminal stenosis. No significant change. C5-C6: Moderate disc desiccation. Mild diffuse disc bulge. Mild facet and uncovertebral hypertrophy bilaterally. Mild canal stenosis. Moderate bilateral foraminal stenosis, increased from the prior examination. C6-C7: Moderate disc desiccation. Mild disc height loss and diffuse disc bulge with superimposed broad-based right paracentral protrusion. Mild facet and uncovertebral hypertrophy bilaterally. Moderate canal stenosis, increased from the prior examination. Moderate bilateral foraminal stenosis, increased from the prior examination. C7-T1: Moderate disc desiccation. Mild diffuse disc bulge. Mild facet and uncovertebral hypertrophy bilaterally. Mild canal stenosis. Increased, moderate to severe right foraminal stenosis. Increased moderate left foraminal stenosis. New mild right C8 nerve root compression. IMPRESSION: 1. Postsurgical sequelae. 2. Multilevel degenerative disc and facet disease, as well as uncovertebral hypertrophy. 3. Multilevel canal stenoses, worst at C3-C4 and C6-C7 where there are moderate canal stenosis. 4. Multilevel foraminal stenoses, worst at C2-C3, C3-C4, and C7-T1 where there is associated intraforaminal nerve root compression. Recommend correlation with clinical symptoms to ascertain relevance of these findings. Dictated by: Xiomara Lawrence M.D. on 05/21/2023 at 10:34 Approved by: Xiomara Lawrence M.D. on 05/21/2023 at 10:41
== END ==
PROVIDERS: PCP Pediatrics; Referring Provider Pediatrics; Visit Provider Pediatrics
DX: M50.31 Other cervical disc degeneration, high cervical region (principal); M48.02 Spinal stenosis, cervical region; M47.812 Spondylosis without myelopathy or radiculopathy, cervical region; M54.10 Radiculopathy, site unspecified; M48.9 Spondylopathy, unspecified
CPT/HCPCS: 72141

== ENCOUNTER → 2023-06-08 09:51 | Outpatient (CLI) | payer OTHER, SELFPAY ==
--- NOTE | 2023-06-08 09:54 | DI.RAD.S_ITS ---
PROCEDURE: XR HIP W PEL IF DONE RT 2V INDICATIONS: Right hip tightness TECHNIQUE: AP pelvis with lateral view(s) of the right hip(s). COMPARISON: [facility], , XR HIP W PEL IF DONE LT 2V, 09/01/2020, 9:45. FINDINGS: Bones: No fractures or dislocations. Pelvic ring appears intact. Mild degenerative joint space loss and sclerosis in both femoroacetabular joints. No suspicious bony lesions. Soft tissues: The visualized bowel gas pattern is normal. No suspicious soft tissue calcifications. IMPRESSION: Mild bilateral femoroacetabular joint degeneration. Dictated by: Beckie Perry M.D. on 06/08/2023 at 15:49 Approved by: Beckie Perry M.D. on 06/08/2023 at 15:50
--- NOTE | 2023-06-08 09:54 | DI.RAD.S_ITS ---
PROCEDURE: XR KNEE RT 3V INDICATIONS: Right knee pain TECHNIQUE: 3 views of the knee were acquired. COMPARISON: [facility], CR, XR KNEE LT 3V, 09/01/2020, 9:47. FINDINGS: Bones: No visible fracture. Mild patellofemoral compartment marginal spurs. Soft tissues: There is wispy density just lateral to the joint line, potentially enthesopathy. No significant joint effusion. No radiodense foreign bodies. No chondrocalcinosis. IMPRESSION: 1. No acute fractures or joint effusion. 2. Opacity projecting lateral to the joint line of uncertain etiology. Correlate with site tenderness and consider enthesopathy. Dictated by: Beckie Perry M.D. on 06/08/2023 at 15:50 Approved by: Beckie Perry M.D. on 06/08/2023 at 15:52
== END ==
PROVIDERS: Family Provider Pediatrics; PCP Pediatrics; Visit Provider Physician Assistant
DX: M16.11 Unilateral primary osteoarthritis, right hip (principal); M25.561 Pain in right knee; M25.551 Pain in right hip
CPT/HCPCS: 73502; 73562

== ENCOUNTER 2023-06-08 17:56 | Emergency (ER) | payer OTHER, SELFPAY ==
[2023-06-08 18:10] VITALS: BP 189/99; PULSE 78; RESP 16; TEMP 36.2; O2SAT 98; BMI 30.1
[2023-06-08 18:38] VITALS: PULSE 76
--- NOTE | 2023-06-08 18:44 | DI.US.S_ITS ---
PROCEDURE: US PERIPH VENOUS LOW EXTREM RT INDICATIONS: RIGHT CALF PAIN TECHNIQUE: Real-time imaging, as well as color and pulse Doppler interrogation, were performed of the lower extremity deep veins from the inguinal ligament to the popliteal fossa. COMPARISON: None. FINDINGS: The common femoral, femoral and popliteal veins are normally compressible, and free of intraluminal thrombus. Color and pulse Doppler demonstrate normal phasic intraluminal flow. There is normal augmentation response to distal compression maneuver. IMPRESSION: Negative for deep venous thrombosis of the right lower extremity. Dictated by: Imtiaz Cueto M.D. on 06/08/2023 at 18:13 Approved by: Imtiaz Cueto M.D. on 06/08/2023 at 18:13
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
[2023-06-08 19:11] VITALS: BP 182/72; PULSE 81; RESP 20; O2SAT 98
== END 2023-06-08 19:14 | disposition home or self-care (01) ==
PROVIDERS: Emergency Provider Physician Assistant Medical; Family Provider Pediatrics; PCP Pediatrics
DX: M25.561 Pain in right knee (principal); M16.11 Unilateral primary osteoarthritis, right hip; M25.551 Pain in right hip
CPT/HCPCS: 73502; 73562; 93971; 99281; 99283

== ENCOUNTER → 2023-06-12 14:16 | Outpatient (CLI) | payer OTHER, SELFPAY ==
[2023-06-12 15:35] LABS: Add Manual Diff / Slide Review NO; Basophils Absolute Auto 0 /uL (0-100); Basophils Percent Auto 0.3 % (0-2); Eosinophils Absolute Auto 100 /uL (0-450); Eosinophils Percent Auto 1.9 % (2-4); Hematocrit 39.4 % (41-53); Hemoglobin 13.7 g/dL (13.5-17.5); Lymphocytes Absolute Auto 1600 /uL (1100-4500); Lymphocytes Percent Auto 26.1 % (25-40); Mean Corpuscular HGB Conc 34.7 % (30-36); Mean Corpuscular Hemoglobin 35.4 PG (26-34); Mean Corpuscular Volume 102.1 fL (80-100); Monocytes Absolute Auto 500 /uL (0-900); Neutrophils Absolute Auto 3800 /uL (1500-7000); Neutrophils Percent Auto 62.7 % (50-75); Platelet Count 146 X10^3/uL (150-400); Red Blood Cell Count 3.86 X10^6/uL (4.5-5.9); Red Cell Distribution Width 13.8 % (11.6-14.8)
[2023-06-12 16:28] LABS: Alanine Aminotransferase 23 IU/L (<50); Albumin 4.1 g/dL (3.5-5.0); Albumin Globulin Ratio 1.3 (1.0-2.8); Alkaline Phosphatase 69 U/L (38-126); Aspartate Aminotransferase 25 IU/L (17-59); Bilirubin Total 1.1 mg/dL (0.2-1.3); Blood Urea Nitrogen 19 mg/dL (9-20); C-Reactive Protein Quant 0.8 mg/dL (<1.0); Carbon Dioxide 28 mmol/L (22-32); Chloride 104 mmol/L (98-107); Estimated Glomerular Filt Rate > 60 mL/min (>60); Globulin 3.1 g/dL (1.7-4.1); Glucose 79 mg/dL (80-110); HEMOLYSIS < 15 (0-50); Potassium 4.2 mmol/L (3.4-5.1); Sodium 139 mmol/L (137-145); Total Protein 7.2 g/dL (6.3-8.2); Uric Acid 7.3 mg/dL (3.5-8.5)
== END ==
PROVIDERS: Family Provider Pediatrics; PCP Pediatrics; Referring Provider Pediatrics; Visit Provider Pediatrics
DX: M25.461 Effusion, right knee (principal); M25.569 Pain in unspecified knee; M54.10 Radiculopathy, site unspecified; M54.2 Cervicalgia; M54.40 Lumbago with sciatica, unspecified side
CPT/HCPCS: 36415; 80053; 84550; 85025; 86140

== ENCOUNTER 2023-07-02 09:30 | Outpatient (RCR) | payer OTHER, SELFPAY ==
--- NOTE | 2023-06-25 10:04 | PT.OPPOC ---
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) Other lack of coordination (06/25/23) Visit Care Team Role Provider Type Fausto Barillas MD Attending Provider Physician Family Provider Primary Care Provider Referring Provider Specialty: Internal Medicine Pediatrics Address: [address] [place] [address], [address] Phone: Fax: Email: [email or web address] Plan Of Care PT-OP-T Assessment and Plan Start: 06/25/23 07:57 Freq: Status: Active Protocol: Document 06/25/23 09:34 SAK (Rec: 06/26/23 10:04 SAK [id number]) Physical Therapy Assessment Rehab Potential Rehabilitation Potential Good Evaluation Complexity Number of Personal Factors/Comorbidities 1-2 Number of Body Systems Impaired 3 Clinical Presentation at Evaluation Evolving Impairments Impairments Activity Tolerance,Pain, Posture,ROM,Strength Goals Four Impairment postural dysfunction Impairment forward head, rounded shoulders, increased thoracic kyposis and lumbar lordosis; poor spinal alignment with increased stressors throughout the kinetic chain of his spine Short Term Goal (STG) patient to be instructed in neutral spinal alignment and HEP for postural correction STG Duration 08/03/23 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 (LTG) Patient to demonstrate significant improvement in postural alignment statically and dynamically with function to decrease further spinal stress and pain LTG Duration 09/25/23 Three Impairment ROM and strength impairment Impairment Decreased ROM and strength c/s and linh shoulders Short Term Goal (STG) Patient to be instructed in individualized therapeutic HEP to address ROM and strength impairments STG Duration 08/03/23 Residential Goal (LTG) Patient to be independent and compliant with HEP and demonstrate improved c/s ROM to WFL including improved ability to turn head for safety while driving, and improved strength to improve patient ability to do upright activities. LTG Duration 09/25/23 Two Impairment limited activity tolerance Impairment neck disability index score 54 % Short Term Goal (STG) Decrease NDI score to no greater than 40% as measure of improved functional activity tolerance STG Duration 08/03/23 Residential Goal (LTG) Decrease NDI score to no greater than 30% as measure of improved functional activity tolerance and quality of life LTG Duration 09/25/23 One Impairment c/s pain with radicular symptoms Impairment pain as high as 8/10 Residential Goal (LTG) Decrease pain by at least 50% to allow patient to better tolerate his usual activities LTG Duration 09/25/23 Assessment Summary Assessment Patient presents to PT with function-limiting neck pain with radicular symptoms into UE's. C/o head feeling heavy like a bowling ball, hard to hold up with need to lay on floor frequently for support. Evaluation reveals significant postural dysfunction, hinging at C5/6 with extension, decrease ROM and strength c/s and shoulders , positive compression test c/ s, dec pain with gentle manual traction. Feel patient will benefit from PT to address above impairments and help him return to prior level of functional activity with less pain. Physical Therapy Plan Frequency and Duration Frequency of Treatment 2x/Week Duration of treatment (weeks) 12 Plan of Care Start Date 06/25/23 Plan of Care End Date 09/25/23 Therapeutic Interventions Therapeutic Interventions Home Exercise Program,Manual Therapy,Patient/Caregiver Education,Self-Care/Home Management,Soft Tissue Mobilization,Taping, Therapeutic Activities, Therapeutic Exercises Modalities Cold Pack/Ice Massage,Electric Stimulation,Hot Packs Next Visit Focus/Plan Next Note Type Treatment Note Next Visit Plan Further ligamentous testing c/ s. Consider cervical traction . Continue postural education , progress ther ex for c/s and shoulder ROM and strengthening as tolerated. Plan of Care Dates Plan of Care Start Date 06/25/23 Plan of Care End Date 09/25/23 Electronically Signed by: Danica Arguello, PT 06/26/23 1004 If you are in agreement with this Plan of Care, please return a signed and dated copy. I have reviewed this Plan of Care and certify that the skilled therapy services above are required to meet the patient?s needs. Physician Signature Date Printed Name and Credentials Clinical Instructor Signature Printed Name and Credentials
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
--- NOTE | 2023-06-25 16:42 | PT.OPPOC ---
Physical, Occupational & Speech Therapy At 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) Other lack of coordination (06/25/23) Visit Care Team Role Provider Type Fausto Barillas MD Attending Provider Physician Family Provider Primary Care Provider Referring Provider Specialty: Internal Medicine Pediatrics Address: [address] [place] [address], [address] Phone: Fax: Email: [email or web address] Plan Of Care PT-OP-T Assessment and Plan Start: 06/25/23 07:57 Freq: Status: Active Protocol: Document 06/25/23 09:34 SAK (Rec: 06/26/23 10:04 SAK [id number]) Physical Therapy Assessment Rehab Potential Rehabilitation Potential Good Evaluation Complexity Number of Personal Factors/Comorbidities 1-2 Number of Body Systems Impaired 3 Clinical Presentation at Evaluation Evolving Impairments Impairments Activity Tolerance,Pain, Posture,ROM,Strength Goals Four Impairment postural dysfunction Impairment forward head, rounded shoulders, increased thoracic kyposis and lumbar lordosis; poor spinal alignment with increased stressors throughout the kinetic chain of his spine Short Term Goal (STG) patient to be instructed in neutral spinal alignment and HEP for postural correction STG Duration 08/03/23 [employer] C[employer] Developer Goal (LTG) Patient to demonstrate significant improvement in postural alignment statically and dynamically with function to decrease further spinal stress and pain LTG Duration 09/25/23 Three Impairment ROM and strength impairment Impairment Decreased ROM and strength c/s and linh shoulders Short Term Goal (STG) Patient to be instructed in individualized therapeutic HEP to address ROM and strength impairments STG Duration 08/03/23 Shelter Goal (LTG) Patient to be independent and compliant with HEP and demonstrate improved c/s ROM to WFL including improved ability to turn head for safety while driving, and improved strength to improve patient ability to do upright activities. LTG Duration 09/25/23 Two Impairment limited activity tolerance Impairment neck disability index score 54 % Short Term Goal (STG) Decrease NDI score to no greater than 40% as measure of improved functional activity tolerance STG Duration 08/03/23 Shelter Goal (LTG) Decrease NDI score to no greater than 30% as measure of improved functional activity tolerance and quality of life LTG Duration 09/25/23 One Impairment c/s pain with radicular symptoms Impairment pain as high as 8/10 Shelter Goal (LTG) Decrease pain by at least 50% to allow patient to better tolerate his usual activities LTG Duration 09/25/23 Assessment Summary Assessment Patient presents to PT with function-limiting neck pain with radicular symptoms into UE's. C/o head feeling heavy like a bowling ball, hard to hold up with need to lay on floor frequently for support. Evaluation reveals significant postural dysfunction, hinging at C5/6 with extension, decrease ROM and strength c/s and shoulders , positive compression test c/ s, dec pain with gentle manual traction. Feel patient will benefit from PT to address above impairments and help him return to prior level of functional activity with less pain. Physical Therapy Plan Frequency and Duration Frequency of Treatment 2x/Week Duration of treatment (weeks) 12 Plan of Care Start Date 06/25/23 Plan of Care End Date 09/25/23 Therapeutic Interventions Therapeutic Interventions Home Exercise Program,Manual Therapy,Patient/Caregiver Education,Self-Care/Home Management,Soft Tissue Mobilization,Taping, Therapeutic Activities, Therapeutic Exercises Modalities Cold Pack/Ice Massage,Electric Stimulation,Hot Packs Next Visit Focus/Plan Next Note Type Treatment Note Next Visit Plan Further ligamentous testing c/ s. Consider cervical traction . Continue postural education , progress ther ex for c/s and shoulder ROM and strengthening as tolerated. Plan of Care Dates Plan of Care Start Date 06/25/23 Plan of Care End Date 09/25/23 Electronically Signed by: Danica Arguello, PT 06/26/23 7825 If you are in agreement with this Plan of Care, please return a signed and dated copy. I have reviewed this Plan of Care and certify that the skilled therapy services above are required to meet the patient?s needs. Physician Signature Date Printed Name and Credentials Clinical Instructor Signature Printed Name and Credentials
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
--- NOTE | 2023-08-28 08:06 | PT.OPDS ---
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) Other lack of coordination (07/02/23) Visit Care Team Role Provider Type Fausto Barillas MD Attending Provider Physician Family Provider Primary Care Provider Referring Provider Specialty: Internal Medicine Pediatrics Address: [address] [place] [address], [id number] Email: [email or web address] Visit Number Visit Number 2 Discharge Summary PT-OP-B Current Condition Start: 06/25/23 07:57 Freq: Status: Active Protocol: Document 07/02/23 09:43 SAK (Rec: 07/02/23 10:29 SAK [id number]) Current Condition History of Current Condition Onset Date 20+ years Current Complaints neck pain with radicular symptoms, finger numbness History of Current Condition Long history of neck pain with radicular symptoms getting worse over time. Fell off [place] which started his pain. Retired from [employer]. Has TENS unit, uses Biofreeze. No regular exercise program, does yardwork. No regular exercise program. Sometimes lays on floor with pillow for more support. Regular activities including doing woodworking causes increased pain. Can't stand very long. States his head feels heavy like a bowling ball, hard to hold up. Pain as high as 7-8/10. Prior Treatments and Tests C45 fusion 2001. Injection scheduled 07/03/23. Uses ice at times. Shoulder injection, thinks left. Treatment Goals Patient/Caregiver Goals Decrease pain, improve strength to allow patient to hold his head up for longer periods of time. Reports stiff this am. PT-OP-C Subjective Start: 06/25/23 07:57 Freq: Status: Active Protocol: Document 07/02/23 09:43 SAK (Rec: 07/02/23 10:29 SAK [id number]) OP-PT Subjective Patient Comments Patient Comments More sore after last session, not sure why, still more soreness. Having injection tomorrow, will cancel PT on . Mostly doing stretching exercises. States last time he had traction, was intermittant. (This PT dept traction machine broken, not option for intermittant.) Receptive to kinesiotape PT-OP-H Neuro Start: 06/25/23 07:57 Freq: Status: Active Protocol: Document 06/25/23 09:34 SAK (Rec: 06/25/23 10:30 [facility] [id number]) Sensation Evaluation Gross Sensation Gross Sensation Left UE Impaired,Right UE Impaired Sensation Description Paresthesia,Numbness,Tingling PT-OP-J Posture/Palpation/Skin Start: 06/25/23 07:57 Freq: Status: Active Protocol: Document 06/25/23 09:34 SAK (Rec: 06/25/23 10:30 [facility] [id number]) Posture Evaluation Position Sitting Head/C-Spine Posture Forward Head T-Spine Posture Increased Kyphosis L-Spine Posture Increased Lordosis Shoulder Posture (L) Rounded,(R) Rounded Scapula Posture (L) Protracted,(R) Protracted Arm Posture (L) Internally Rotated,(R) Internally Rotated Pelvis Posture Anteriorly Tilted Palpation Assessment Location C/s Palpation Findings Soft Tissue Tightness,Muscle Guarding,Tenderness UT Palpation Findings Soft Tissue Tightness,Muscle Guarding,Tenderness PT-OP-K Range of Motion Start: 06/25/23 07:57 Freq: Status: Active Protocol: Document 06/25/23 09:34 SAK (Rec: 06/25/23 10:30 [facility] [id number]) Cervical Spine Range of Motion Cervical Spine Active Testing Position Sitting Flexion 27 Extension 25 Rotation Left 38 Rotation Right 41 Lateral Flexion Left 27 Lateral Flexion Right 22 ROM Limitations Soft Tissue Tightness,Pain Shoulder Goniometric Range of Motion Shoulder Right Testing Position Sitting Flexion 160 Extension 15 Abduction 150 External Rotation at 0 degrees Abduction 45 Internal Rotation Behind Back (text) L2 Left Testing Position Sitting Flexion 155 Extension 15 Abduction 145 External Rotation at 0 degrees Abduction 45 Internal Rotation Behind Back (text) L4 Shoulder ROM Limitations Shoulder ROM Limitations Soft Tissue Tightness,Pain PT-OP-L Special Tests Start: 06/25/23 07:57 Freq: Status: Active Protocol: Document 06/25/23 09:34 SAK (Rec: 06/26/23 10:04 [facility] [id number]) Special Tests Cervical Spine Special Tests Traction Test Results + Comments dec pain Vertebral Artery Test Results - Foraminal Compression Test Results + PT-OP-M Strength Start: 06/25/23 07:57 Freq: Status: Active Protocol: Document 06/25/23 09:34 SAK (Rec: 06/26/23 10:04 [facility] [id number]) Cervical Spine Strength Cervical Spine Manual Muscle Testing Flexion (C1-2) 3+ Fair+ Extension 3+ Fair+ Rotation Left 3+ Fair+ Rotation Right 3+ Fair+ Lateral Flexion Left (C3) 3+ Fair+ Lateral Flexion Right (C3) 3+ Fair+ Shoulder Strength Shoulder Manual Muscle Testing linh Flexion 4 Good Extension 4 Good Abduction (C5) 4 Good Adduction 4 Good External Rotation 4- Good- Internal Rotation 4 Good PT-OP-T Assessment and Plan Start: 06/25/23 07:57 Freq: Status: Active Protocol: Document 08/28/23 08:05 [facility] (Rec: 08/28/23 08:06 [facility] [id number]) Physical Therapy Plan Discharge Physical Therapy Discharge Reasons No Longer Attending PT
== END 2023-09-03 12:10 | disposition home or self-care (01) ==
LOC: PHYS 09:30
PROVIDERS: Family Provider Pediatrics; PCP Pediatrics; Referring Provider Pediatrics; Visit Provider Pediatrics
DX: R27.8 Other lack of coordination (principal); Q76.1 Klippel-Feil syndrome
CPT/HCPCS: 97012; 97110; 97140; 97162; 97535

== ENCOUNTER → 2023-11-01 10:36 | Outpatient (CLI) | payer OTHER, SELFPAY ==
[2023-11-01 18:41] LABS: Creatinine Urine Random 243.7 mg/dL; Microalbumin Urine Random 3.9 mg/dL (0-1.6)
== END ==
PROVIDERS: Family Provider Pediatrics; PCP Family Medicine; Visit Provider Family Medicine
DX: R03.0 Elevated blood-pressure reading, without diagnosis of hypertension (principal)
CPT/HCPCS: 82043; 82570

== ENCOUNTER → 2023-11-02 14:23 | Outpatient (CLI) | payer OTHER, SELFPAY ==
[2023-11-02 17:05] LABS: Hemoglobin A1C% w Est Avg Glu 5.1 % (4.0-6.0)
[2023-11-02 17:53] LABS: TSH w/ Reflex to FT4 2.59 uIU/mL (0.47-4.68)
== END ==
PROVIDERS: Family Provider Pediatrics; PCP Family Medicine; Referring Provider Family Medicine; Visit Provider Family Medicine
DX: I10 Essential (primary) hypertension (principal); M54.2 Cervicalgia
CPT/HCPCS: 36415; 83036; 84443

== ENCOUNTER → 2023-11-28 14:36 | Outpatient (CLI) | payer OTHER, SELFPAY ==
--- NOTE | 2023-11-28 14:40 | DI.RAD.S_ITS ---
PROCEDURE: XR CHEST 2V INDICATIONS: right thoracic/CVA tenderness TECHNIQUE: 2 views of the chest were acquired. COMPARISON: [facility], [place], XR CHEST 2V, 03/30/2018, 16:25. [facility], [place], CHEST 1 VIEW, 10/28/2017, 12:40. FINDINGS: Surgical changes and devices: ACDF of the lower cervical spine. Lungs and pleura: Lungs are clear. No pleural effusions or pneumothorax. Mediastinum: Mediastinal contours are normal. Heart size is normal. Bones and chest wall: No suspicious bony abnormalities. Soft tissues appear unremarkable. IMPRESSION: No acute cardiopulmonary abnormality is seen. Dictated by: Luis Felipe Garcia M.D. on 11/28/2023 at 16:33 Approved by: Luis Felipe Garcia M.D. on 11/28/2023 at 16:33
[2023-11-28 15:41] LABS: Appearance Urine UA CLEAR; Bilirubin Urine UA NEGATIVE (NEGATIVE); Color Urine UA YELLOW; Glucose Urine UA NEGATIVE (Negative); Ketones Urine UA NEGATIVE (NEGATIVE); Leukocyte Esterase Urine UA NEGATIVE (NEGATIVE); Nitrite Urine UA NEGATIVE (Negative); Occult Blood Urine UA NEGATIVE (Negative); Protein Urine UA NEGATIVE (Negative); Specific Gravity Urine UA 1.025 (1.000-1.035); Urobilinogen Urine UA 0.2 E.U./dL (0.2)
[2023-11-28 15:49] LABS: Alanine Aminotransferase 24 IU/L (<50); Albumin 4.4 g/dL (3.5-5.0); Albumin Globulin Ratio 1.2 (1.0-2.8); Alkaline Phosphatase 60 U/L (38-126); Aspartate Aminotransferase 27 IU/L (17-59); BUN Creatinine Ratio 18.6 (6-22); Bilirubin Total 1.1 mg/dL (0.2-1.3); Blood Urea Nitrogen 18 mg/dL (9-20); Calcium 9.8 mg/dL (8.4-10.2); Carbon Dioxide 27 mmol/L (22-32); Chloride 102 mmol/L (98-107); Estimated Glomerular Filt Rate > 60 mL/min (>60); Globulin 3.6 g/dL (1.7-4.1); Glucose 94 mg/dL (80-110); HEMOLYSIS < 15 (0-50); Sodium 139 mmol/L (137-145)
[2023-11-28 16:04] LABS: Bacteria Urine None Seen; Culture Indicated Urine Cult Not Indicated; RBC Urine 0-1/HPF (0-5/HPF); Squamous Epithelial Cell Urine 0-1 /HPF (0-5/HPF); WBC Urine 0-1/HPF (0-5/HPF)
== END ==
PROVIDERS: Family Provider Pediatrics; PCP Family Medicine; Referring Provider Family Medicine; Visit Provider Family Medicine
DX: M54.9 Dorsalgia, unspecified (principal); I10 Essential (primary) hypertension; Z87.442 Personal history of urinary calculi
CPT/HCPCS: 36415; 71046; 80053; 81001

== ENCOUNTER → 2023-12-10 06:44 | Outpatient (CLI) | payer OTHER, SELFPAY ==
--- NOTE | 2023-12-10 06:45 | DI.US.S_ITS ---
PROCEDURE: US RENAL COMPLETE INDICATIONS: RIGHT FLANK TENDERNESS TECHNIQUE: Real-time scanning was performed of the kidneys and bladder, with image documentation. COMPARISON: None. FINDINGS: Kidneys: Right kidney measures 11 centimeters. Left kidney measures 11 centimeters. No solid masses. No hydronephrosis. No cortical thinning. Bladder: Both ureter jets are visualized. Volume is 39 cc. Miscellaneous: No pelvic free fluid. IMPRESSION: There is no hydronephrosis. No significant sonographic abnormality. Dictated by: Ozzy Enciso M.D. on 12/10/2023 at 12:00 Approved by: Ozzy Enciso M.D. on 12/10/2023 at 12:01
--- NOTE | 2023-12-10 06:45 | DI.ECHO.S_ITS ---
[facility]---------+ [facility] +---------+ : : [address] [place] [place] : : : : [id number] : : : : Phone: [phone]+ Echocardiogram Report + + :Name: NUPUR FUENTES Study Date: 12/10/2023 Height: 70 in : :[facility] ReadingLocation: Weight: 200 lb : : Gender: Male BSA: 2.1 m2 : :: 1955 Age: 68 yrs BP: 129/88 mmHg: :Reason For Study: EVAL AND TREAT : :Ordering Physician: MADI, : :THELMA Performed By: Ling Isaac : :Referring: THELMA BARRAZA : + + Interpretation Summary 1) Normal left ventricular thickness, size, wall motion, and systolic function (EF 60-65%). 2) Normal right ventricular size and function. 3) There is mild aortic regurgitation. 4) The aortic root is mildly to moderately dilated at 4.5cm. 5) Compared to the Echo done 02/27/2022, no significant change. Procedure: A two-dimensional transthoracic echocardiogram with color flow and Doppler was performed. The study quality was technically adequate. Comparison is made with the echocardiogram of 02/27/2022. The patient was in sinus rhythm with heart rates between 59-65 bpm during the exam. Left Ventricle: The left ventricle is normal in size and wall thickness. The ejection fraction is estimated to be 55-60%. Left ventricular systolic function appears normal without focal wall motion abnormalities. Right Ventricle: The right ventricle is normal in size and function. Atria: The left atrial size is normal. Right atrial size is normal. There is no Doppler evidence for an interatrial shunt. Mitral Valve: The mitral valve leaflets appear mildly thickened, but open well. There is mild mitral annular calcification. There is trace mitral regurgitation. Aortic Valve: The aortic valve is trileaflet. The aortic valve opens well. There is no aortic valve stenosis. There is mild aortic regurgitation. Tricuspid Valve: The tricuspid valve is normal in structure and function. There is mild tricuspid regurgitation. The right ventricular systolic pressure is estimated to be at least 21 mmHg based on an estimated right atrial pressure of 3 mm Hg. Pulmonic Valve: The pulmonic valve leaflets are thin and pliable; valve motion is normal. There is no pulmonic valvular regurgitation. Great Vessels: The aortic root is mildly to moderately dilated at 4.5cm. The ascending aorta is mildly enlarged. The IVC is of normal diameter and collapses greater than 50% with a sniff. This suggests a low right atrial pressure of 3 mm Hg. Pericardium/ Pleura There is no pericardial effusion. There is no pleural effusion. MMode/2D Measurements & Calculations LVIDd: 4.8 cm LVOT diam: 2.2 cm LVIDs: 2.9 cm Ao root diam: 4.5 cm FS: 38.8 % asc Aorta Diam: 4.1 cm EPSS: 1.2 cm Ao Arch Diam (Prox Trans): 3.7 cm IVSd: 0.94 cm LVPWd: 1.0 cm LV raines. diameter/BSA (cm/m^2): 2.3 LV sys. diameter/BSA (cm/m^2): 1.4 LA A2 area: 14.7 cm2 RA long axis: 4.3 cm LA A4 area: 12.1 cm2 RA area: 11.8 cm2 LA length (vol): 4.2 cm RA vol: 27.2 ml LA vol: 36.2 ml RA : 13.0 ml/m2 LA vol index: 17.3 ml/m2 IVC diam: 1.7 cm RVD1 (basal): 4.0 cm TAPSE: 2.0 cm Doppler Measurements & Calculations Ao V2 max: 95.7 cm/sec LVOT Max Zen: 82.3 cm/sec Ao V2 mean: 71.2 cm/sec LV V1 max P.7 mmHg Ao max P.7 mmHg LV V1 VTI: 17.1 cm Ao mean P.3 mmHg GISELA(I,D): 3.3 cm2 Ao V2 VTI: 20.3 cm GISELA(V,D): 3.4 cm2 sev ratio: 0.84 GISELA indexed to BSA (cm^2/m^2): 1.6 MV E max zen: 59.4 cm/sec TR max zen: 213.3 cm/sec MV A max zen: 69.3 cm/sec TR max P.2 mmHg MV E/A: 0.86 PA V2 max: 77.5 cm/sec Med Peak E' Zen: 5.3 cm/sec PA V2 mean: 53.8 cm/sec E/E' med: 11.1 PA mean P.3 mmHg Lat Peak E' Zen: 7.0 cm/sec PA pr(Accel): 39.6 mmHg E/E' lat: 8.5 E/e' average: 9.8 MV dec time: 0.24 sec SV(LVOT): 67.3 ml Reading Physician:12:01 PM
== END ==
LOC: ECHO 06:44
PROVIDERS: Family Provider Pediatrics; PCP Family Medicine; Referring Provider Family Medicine; Visit Provider Family Medicine
DX: I08.3 Combined rheumatic disorders of mitral, aortic and tricuspid valves (principal); I77.810 Thoracic aortic ectasia; I77.89 Other specified disorders of arteries and arterioles; I10 Essential (primary) hypertension; M54.9 Dorsalgia, unspecified; M54.6 Pain in thoracic spine; G89.29 Other chronic pain
CPT/HCPCS: 76770; 93306

== ENCOUNTER → 2023-12-24 09:54 | Outpatient (CLI) | payer OTHER, SELFPAY ==
--- NOTE | 2023-12-24 | DI.US.S_ITS ---
PROCEDURE: US ABD AORTA ANEURYSM SCREEN INDICATIONS: ASCENDING AORTA DILATION TECHNIQUE: Real time scanning was performed of the aorta and iliac arteries, with image documentation. COMPARISON: [facility], CT, CT ABDOMEN PELVIS W CON, 12/18/2022, 13:12. [facility], [place], ABD AORTA ANEURYSM SCREENING, 11/22/2011, 8:56. FINDINGS: Aorta: Proximal aortic diameter measures 2.9 cm. Mid-aorta measures 2.3 cm. Distal aortic diameter is 2.2 cm. Iliac arteries: Right common iliac artery measures 0.3 cm. Left common iliac artery measures 1.7 cm. Included liver appears diffusely increased in echogenicity, most commonly seen in the setting of hepatic steatosis. There is a 1.4 cm septated cyst in the posterior left hepatic lobe, most likely benign. IMPRESSION: No sonographic signs of abdominal aortic aneurysm. Approved by: Reginald Elliott M.D. on 12/24/2023 at 11:36
== END ==
PROVIDERS: Family Provider Pediatrics; PCP Family Medicine; Referring Provider Internal Medicine Cardiovascular Disease; Visit Provider Internal Medicine Cardiovascular Disease
DX: Z13.6 Encounter for screening for cardiovascular disorders (principal); I77.810 Thoracic aortic ectasia
CPT/HCPCS: 76706

== ENCOUNTER 2025-05-08 06:37 | Emergency (ER) | payer OTHER, SELFPAY ==
[2025-05-08 06:42] VITALS: BP 136/83; PULSE 84; RESP 18; TEMP 36.6; O2SAT 95; BMI 29.4
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
--- NOTE | 2025-05-08 06:46 | DI.CT.S_ITS ---
PROCEDURE: CT FACIAL BONES WO CON INDICATIONS: Bruising to left eye after fall TECHNIQUE: Noncontrast 2.5 mm thick axial images acquired from the mandible through the frontal sinuses, with coronal and sagittal reformatting. For radiation dose reduction, the following was used: automated exposure control, adjustment of mA and/or kV according to patient size. COMPARISON: [facility], CT, FACIAL BONES WITHOUT CONTRAST, 01/10/2017, 14:30. FINDINGS: Image quality: Excellent. Bones and teeth: Orbital purdy are intact. Left orbital rim fixation wires are noted, stable compared to prior. Sinus purdy show no fracture or deformity. Nasal bones and septum are intact. Visualized portions of the mandible demonstrate no fractures or subluxation. Zygomatic arches are intact. Pterygoid plates are intact. Visualized portions of the skull base and auditory canals are intact. Sinuses: Right maxillary sinus mucous retention cyst. Paranasal sinuses are otherwise aerated, without fluid levels, mucosal thickening, or mucoceles. Mastoid air cells are aerated. Soft tissues: Left lateral periorbital soft tissue swelling. No enlarged lymph nodes. No soft tissue lacerations or debris. Vascular: Visualized vascular structures appear normal in the absence of contrast. Bony vascular foramina and canals are intact. IMPRESSION: No acute facial fractures. Left lateral periorbital soft tissue swelling. Dictated by: Von Mejia M.D. on 05/08/2025 at 8:34 Approved by: Von Mejia M.D. on 05/08/2025 at 8:44
[2025-05-08 06:56] LABS: Add Manual Diff / Slide Review NO; Basophils Absolute Auto 0 /uL (0-100); Basophils Percent Auto 0.2 % (0-2); Eosinophils Absolute Auto 0 /uL (0-450); Eosinophils Percent Auto 0.4 % (2-4); Hematocrit 38.3 % (41-53); Hemoglobin 13.1 g/dL (13.5-17.5); Lymphocytes Absolute Auto 1000 /uL (1100-4500); Lymphocytes Percent Auto 9.5 % (25-40); Mean Corpuscular HGB Conc 34.2 % (30-36); Mean Corpuscular Hemoglobin 35.3 PG (26-34); Mean Corpuscular Volume 103.1 fL (80-100); Monocytes Absolute Auto 700 /uL (0-900); Monocytes Percent Auto 6.7 % (3-14); Neutrophils Absolute Auto 9100 /uL (1500-7000); Neutrophils Percent Auto 83.2 % (50-75); Platelet Count 170 X10^3/uL (150-400); Red Blood Cell Count 3.72 X10^6/uL (4.5-5.9); Red Cell Distribution Width 14.4 % (11.6-14.8)
[2025-05-08] MEDS: MORPHINE 4 MG/ML INJ IV (06:59)
[2025-05-08 07:00] VITALS: BP 137/78; PULSE 94; RESP 21; O2SAT 91
[2025-05-08] MEDS: ONDANSETRON 4 MG/2 ML INJ IV (07:04)
[2025-05-08 07:13] LABS: Prothrombin Time 10.8 SECONDS (9.4-12.5)
[2025-05-08 07:16] LABS: PTT Partial Thromboplastin Tim 35 SECONDS (25.1-36.5)
[2025-05-08 07:18] LABS: Alanine Aminotransferase 23 IU/L (<50); Albumin 4.6 g/dL (3.5-5.0); Albumin Globulin Ratio 1.5 (1.0-2.8); Alkaline Phosphatase 88 U/L (38-126); Aspartate Aminotransferase 35 IU/L (17-59); BUN Creatinine Ratio 24.2 (6-22); Bilirubin Total 1.1 mg/dL (0.2-1.3); Blood Urea Nitrogen 23 mg/dL (9-20); Calcium 9.6 mg/dL (8.4-10.2); Carbon Dioxide 21 mmol/L (22-32); Chloride 106 mmol/L (98-107); Creatine Kinase 78 U/L (55-170); Estimated Glomerular Filt Rate > 60 mL/min (>60); Globulin 3.1 g/dL (1.7-4.1); Glucose 164 mg/dL (70-99); HEMOLYSIS < 15 (0-50); Lipase 90 U/L (23-300); Magnesium 1.6 mg/dL (1.6-2.3); Potassium 4.7 mmol/L (3.4-5.1); Sodium 138 mmol/L (137-145); Total Protein 7.7 g/dL (6.3-8.2)
[2025-05-08 07:29] LABS: Troponin I < 0.012 ng/mL (0.01-0.034)
[2025-05-08 07:33] VITALS: PULSE 73; RESP 19
[2025-05-08 08:00] VITALS: PULSE 73; RESP 21
[2025-05-08] MEDS: MORPHINE 4 MG/ML INJ 2 MG IV (08:01)
[2025-05-08 08:30] VITALS: PULSE 77; RESP 18; O2SAT 94
--- NOTE | 2025-05-08 09:04 | EKG_ITS ---
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
[2025-05-08 09:13] VITALS: BP 138/76; PULSE 78; RESP 20; TEMP 37; O2SAT 97
== END 2025-05-08 09:10 | disposition home or self-care (01) ==
PROVIDERS: Student in an Organized Health Care Education/Training Program; Emergency Provider Family Medicine; PCP Family Medicine
DX: S22.32XA Fracture of one rib, left side, initial encounter for closed fracture (principal); H05.232 Hemorrhage of left orbit; W19.XXXA Unspecified fall, initial encounter; Z79.01 Long term (current) use of anticoagulants
CPT/HCPCS: 36415; 70450; 70486; 71250; 72125; 80053; 82550; 83690; 83735; 84484; 85025; 85610; 85730; 93005; 93010; 96374; 96375; 96376; 99284; J2270; J2405

== ENCOUNTER → 2025-08-20 09:50 | Outpatient (CLI) | payer OTHER, SELFPAY ==
--- NOTE | 2025-08-20 09:51 | DI.RAD.S_ITS ---
PROCEDURE: XR SHOULDER LT MIN 2V INDICATIONS: persistent pain/decreased ROM of left should after fall TECHNIQUE: Three views of the left shoulder were acquired. COMPARISON: None. FINDINGS: Bones: There are no osseous abnormalities in the shoulder region. Multiple old partially unified fracture of the lateral left upper ribs noted Acromioclavicular and glenohumeral joints: Normal in width and alignment without arthritic change Soft tissues: No soft tissue swelling, calcification or mass. IMPRESSION: Normal shoulder Multiple partially unified fractures left upper ribs Dictated by: Espinoza Pandey M.D. on 08/21/2025 at 11:10 Approved by: Espinoza Pandey M.D. on 08/21/2025 at 11:11
[2025-08-20 11:33] LABS: Add Manual Diff / Slide Review NO; Hematocrit 37.4 % (41-53); Hemoglobin 13.0 g/dL (13.5-17.5); Lymphocytes Absolute Auto 1200 /uL (1100-4500); Mean Corpuscular HGB Conc 34.8 % (30-36); Mean Corpuscular Hemoglobin 35.2 PG (26-34); Mean Corpuscular Volume 101.2 fL (80-100); Platelet Count 142 X10^3/uL (150-400)
[2025-08-20 11:43] LABS: Hemoglobin A1C% w Est Avg Glu 5.4 % (4.0-6.0)
[2025-08-20 12:19] LABS: Magnesium 2.0 mg/dL (1.6-2.3)
[2025-08-20 12:33] LABS: Vitamin D 25 Hydroxy (D3) 30.1 ng/mL (30.0-100.0)
[2025-08-20 12:54] LABS: Ferritin 175 ng/mL (18-464)
[2025-08-20 13:22] LABS: Vitamin B12 382 pg/mL (239-931)
== END ==
LOC: RAD 09:51
PROVIDERS: PCP Family Medicine; Referring Provider Family Medicine; Visit Provider Family Medicine
DX: S22.42XA Multiple fractures of ribs, left side, initial encounter for closed fracture (principal); M25.512 Pain in left shoulder; E55.9 Vitamin D deficiency, unspecified; G89.29 Other chronic pain; M25.50 Pain in unspecified joint; M19.90 Unspecified osteoarthritis, unspecified site; E78.1 Pure hyperglyceridemia; D70.9 Neutropenia, unspecified; R71.8 Other abnormality of red blood cells; R20.0 Anesthesia of skin; R20.2 Paresthesia of skin; W18.30XA Fall on same level, unspecified, initial encounter
CPT/HCPCS: 36415; 73030; 82306; 82607; 82728; 83036; 83735; 85025